=== PATIENT | male | born 1940 | race Two or more races ===

== ENCOUNTER 2020-10-06 11:16 | Emergency (ER) | payer OTHER ==
[~2020-10-06] VITALS: Ht 182.9 cm; Wt 78.9 kg
[2020-10-06 11:41] VITALS: BP 153/91
[2020-10-06 12:12] LABS: Eosinophils # (auto) 0.3 10 ^3/uL (0-0.8); Platelet Count (auto) 329 10^3/uL (140-450)
[2020-10-06 12:13] LABS: Basophils # (auto) 0 10 ^3/uL (0-0.2); Basophils % (auto) 0.4 % (0.0-2.0); Eosinophils % (auto) 2.8 % (0.0-7.0); Hematocrit 36.8 % (41.0-53.0); Hemoglobin 11.8 g/dL (13.5-17.5); Lymphocytes % (auto) 9.7 % (10.0-50.0); Mean Corpuscular Hemoglobin 24.8 pg (28.0-32.0); Mean Corpuscular Volume 77.5 fL (80.0-100.0); Monocytes # (auto) 0.6 10 ^3/uL (0-1.3); Neutrophils # (auto) 8.3 10 ^3/uL (1.6-8.6); Neutrophils % (auto) 81.1 % (37.0-80.0); Red Blood Cells 4.75 10^6/uL (4.5-5.90); Red Cell Distribution Width 16.5 % (11.8-14.3); White Blood Cell 10.2 10^3/uL (4.4-10.8)
[2020-10-06 12:33] LABS: Potassium 3.8 mmol/L (3.5-5.1)
[2020-10-06 12:56] LABS: Albumin 2.9 g/dL (3.4-5.0); BUN/Creatinine Ratio 18.4; Bilirubin, Total 0.4 mg/dL (0.2-1.0); CRP High Sensitivity 9.18 mg/dL (< 0.3); Calcium 8.1 mg/dL (8.5-10.1); Total Protein 8.6 g/dL (6.4-8.2)
[2020-10-06] MEDS ORDERED: AZITHROMYCIN 250 MG TAB PO ONE (14:00)
== END 2020-10-06 14:11 | disposition home or self-care (01) ==
LOC: ER 11:16
DX: U07.1 COVID-19 (principal); J12.82 Pneumonia due to coronavirus disease 2019; I10 Essential (primary) hypertension; E55.9 Vitamin D deficiency, unspecified
CPT/HCPCS: 36415; 71046; 80053; 82306; 83615; 85025; 85379; 86141; 87426